=== PATIENT | female | born 1995 | race Hispanic/Latino ===

== ENCOUNTER 2022-03-02 09:42 | Emergency (ER) | payer OTHER ==
[~2022-03-02] VITALS: Ht 149.9 cm; Wt 81.6 kg
[2022-03-02 09:47] VITALS: BP 142/82
[2022-03-02] MEDS ORDERED: PRED20TA3 PO (10:07)
[2022-03-02] MEDS ORDERED: ALBUHFA IH (10:07)
== END 2022-03-02 10:20 | disposition home or self-care (01) ==
LOC: EDH 09:42
DX: J45.901 Unspecified asthma with (acute) exacerbation (principal)

== ENCOUNTER 2022-11-08 09:02 | Emergency (ER) | payer OTHER ==
[~2022-11-08] VITALS: Ht 149.9 cm; Wt 90.7 kg
[~2022-11-08 09:02] MED LIST: ALBUHFA IH; PRED20TA3 PO
[2022-11-08 09:07] VITALS: BP 130/73
[2022-11-08] MEDS ORDERED: IPRATROPIUM/ALBUTEROL SULFATE 3 ML SOLUTION IH ONE (09:30)
[2022-11-08] MEDS ORDERED: PRED5TAB PO (11:06)
[2022-11-08] MEDS ORDERED: ALBU2.5V2 IH (11:06)
== END 2022-11-08 11:49 | disposition home or self-care (01) ==
LOC: EDH 09:02
DX: U07.1 COVID-19 (principal); J45.909 Unspecified asthma, uncomplicated; Z79.52 Long term (current) use of systemic steroids; Z88.0 Allergy status to penicillin
CPT/HCPCS: 94640